=== PATIENT | female | born 1985 | race Caucasian/White ===

== ENCOUNTER 2017-03-08 23:22 | Emergency (ER) | payer SELFPAY ==
[2017-06-04] MEDS ORDERED: AVIDOXY100 MG PO (15:49)
[2017-06-04] MEDS ORDERED: NORCO 5-325 TA1 EACH PO (15:50)
== END 2017-03-09 03:32 | disposition home or self-care (01) ==
LOC: ER1 23:22
DX: N39.0 Urinary tract infection, site not specified (principal); F17.210 Nicotine dependence, cigarettes, uncomplicated
CPT/HCPCS: 81001; 84703; 99284

== ENCOUNTER 2021-06-23 16:37 | Emergency (ER) | payer OTHER ==
[~2021-06-23 16:37] MED LIST: AVIDOXY100 MG PO; CHRONULAC20 GM/30 M PO; CIPRODEX OTIC7.5 ML OT; CLINDAMYCIN HC300 MG PO; CORTISPORIN OTI10 M1 EARLF; CORTISPORIN OTI10 M1 OT; IBU800 MG PO; MACROBID 100 M100 M1 PO; NORCO 5-325 TA1 EACH PO; OMNICEF 300 MG300 MG PO; TORADOL 10 MG T10 MG PO; VIBRAMYCIN100 MG PO
== END 2021-06-23 19:35 | disposition home or self-care (01) ==
LOC: ER1 16:37
DX: M79.662 Pain in left lower leg (principal); R60.0 Localized edema; F17.290 Nicotine dependence, other tobacco product, uncomplicated
CPT/HCPCS: 93971; 99283

== ENCOUNTER 2022-03-20 20:14 | Emergency (ER) | payer OTHER ==
[2022-03-20 21:22] LABS: RED BLOOD COUNT 4.82 M/UL (4.00-5.10); WHITE BLOOD COUNT 12.6 K/UL (4.5-11.0)
[2022-03-20 21:41] LABS: BUN/CREATININE RATIO 18 (0-10)
[2022-03-20] MEDS ORDERED: OMNICEF 300 MG300 MG PO (22:44)
[2022-03-20] MEDS ORDERED: IBU600 MG PO (22:44)
== END 2022-03-20 22:57 | disposition home or self-care (01) ==
LOC: ER1 20:14
PROVIDERS: Family Medicine
DX: N39.0 Urinary tract infection, site not specified (principal); F17.200 Nicotine dependence, unspecified, uncomplicated
CPT/HCPCS: 80048; 81001; 83605; 85025; 87077; 87086; 87186; 93005; 96374; 99284; J1885